=== PATIENT | female | born 1985 | race Caucasian/White ===

== ENCOUNTER → 2018-06-08 12:51 | Outpatient (CLI) | payer OTHER, SELFPAY ==
--- NOTE | 2018-06-08 | DI.ECHO.S_ITS ---
[facility]---------+ [facility] +---------+ : : [address] : [place] : : : : [id number] : : : : Phone: [phone]---------+ Echocardiogram Report + + :Name: JAMES MILNER Study Date: 06/08/2018 Height: 65 in : :[facility] Weight: 163 lb : : Gender: Female BSA: 1.8 m2 : :: 1985 Age: 32 yrs BP: 138/84 mmHg: :Reason For Study: QTC : : Performed By: Suzan Cardenas : :Referring: AIDE ESCALERA : + + Interpretation Summary The left ventricle is normal in size, wall thickness, and systolic function without any focal wall motion abnormalities. The ejection fraction is estimated to be 60-65%. The right ventricle is normal in size and function. No significant valvular pathology seen. Procedure: A two-dimensional transthoracic echocardiogram with color flow and Doppler was performed. The study quality was technically good. There is no prior echocardiogram noted for this patient. The patient was in normal sinus rhythm during the exam. Left Ventricle: The left ventricle is normal in size, wall thickness, and systolic function without any focal wall motion abnormalities. There is no thrombus. The ejection fraction is estimated to be 60-65%. Assessment of diastolic parameters indicates normal left ventricular diastolic function and normal filling pressures. Right Ventricle: The right ventricle is normal in size and function. Atria: The left atrial size is normal. Right atrial size is normal. The interatrial septum is intact with no evidence for an atrial septal defect. Mitral Valve: The mitral valve is normal in structure and function. There is no mitral regurgitation noted. Aortic Valve: The aortic valve is trileaflet. The aortic valve opens well. There is no aortic valve stenosis. No aortic regurgitation is present. Tricuspid Valve: The tricuspid valve is normal in structure and function. There is a trace or physiologic amount of tricuspid regurgitation. The right ventricular systolic pressure is estimated at 25 mmHg assuming a right atrial pressure of 3 mm Hg. Pulmonic Valve: The pulmonic valve is normal in structure and function. There is trace pulmonic regurgitation. Great Vessels: The aortic root is normal size. The dimensions of the ascending aorta are normal. The IVC is of normal diameter and collapses greater than 50% with a sniff. This suggests a low right atrial pressure of 3 mm Hg. Pericardium/ Pleura There is no pericardial effusion. There is no pleural effusion. MMode/2D Measurements & Calculations LVIDd: 4.3 cm Ao root diam: 3.0 cm LVIDs: 3.0 cm Aortic Jxn: 2.3 cm FS: 30.0 % asc Aorta Diam: 2.6 cm IVSd: 0.71 cm Ao Arch Diam (Prox Trans): 2.2 cm LVPWd: 0.66 cm LV [place]. diameter/BSA (cm/m^2): 2.4 LV sys. diameter/BSA (cm/m^2): 1.7 LA dimension: 3.2 cm RA long axis: 4.3 cm LA A2 area: 19.0 cm2 RA area: 12.0 cm2 LA A4 area: 18.8 cm2 RA vol: 28.5 ml LA length (vol): 4.8 cm RA : 15.7 ml/m2 LA vol: 63.8 ml IVC diam: 1.6 cm LA vol index: 35.2 ml/m2 RVDd major: 5.8 cm RVD1 (basal): 3.3 cm RVD2 (mid): 3.2 cm Doppler Measurements & Calculations Ao V2 max: 114.7 cm/sec MV E max phu: 86.5 cm/sec Ao V2 mean: 73.9 cm/sec MV A max phu: 68.0 cm/sec Ao max P.3 mmHg MV E/A: 1.3 Ao mean P.6 mmHg Med Peak E' Phu: 9.9 cm/sec Ao V2 VTI: 26.2 cm E/E' med: 8.7 Lat Peak E' Phu: 13.5 cm/sec E/E' lat: 6.4 E/e' average: 7.6 MV dec time: 0.16 sec MV P1/2t: 46.9 msec TR max phu: 234.9 cm/sec MV P1/2t max phu: 86.0 cm/sec TR max P.1 mmHg MVA(P1/2t): 4.7 cm2 PA V2 max: 91.8 cm/sec PA V2 mean: 60.3 cm/sec PA mean P.7 mmHg PA Accel Time: 0.17 sec Reading Physician:PM
== END ==
PROVIDERS: Visit Provider Physician Assistant
DX: R00.2 Palpitations (principal)
CPT/HCPCS: 93306